=== PATIENT | male | born 1965 | race Caucasian/White ===

== ENCOUNTER → 2017-10-23 | Outpatient (CLI) | payer OTHER ==
[~2017-10-23] MED LIST: HCTZ; HYDROCHLOROTHIA25 MG; LOSARTAN POTAS100 MG; OMEPRAZOLE40 MG; TOPROL XL50 MG PO
--- NOTE | 2017-10-23 16:52 | Diagnostic Imaging Report ---
PROCEDURE: X-RAY CHEST, TWO VIEWS COMPARISON: Chest x-ray 05/15/17. INDICATIONS: PRE-OP , HAND SURGERY. DENIES CHEST COMPLAINTS FINDINGS: LUNGS: No mass or infiltrate. The pulmonary vascular markings are normal. PLEURA: No effusions or pneumothorax. HEART \T\ MEDIASTINUM: The heart is within normal size-limits. No hilar lymphadenopathy. BONES \T\ SOFT TISSUES: Mild degenerative changes of the thoracic spine are stable. No focal osseous lesions. Soft tissues are unremarkable. CONCLUSION: No acute thoracic abnormality. Stable chest. Dictated by: Felipe Huntley M.D. on 10/23/2017 at 16:51 Electronically approved by: Felipe Huntley M.D. on 10/23/2017 at 16:51
== END | disposition home or self-care (01) ==
LOC: RAD 11:57
PROVIDERS: ATTEND Internal Medicine
DX: Z01.811 Encounter for preprocedural respiratory examination (principal)
CPT/HCPCS: 71046